=== PATIENT | female | born 1945 | race Caucasian/White ===

== ENCOUNTER 2017-01-24 08:07 | Emergency (ER) | payer OTHER, MEDICARE ==
[2017-01-24 08:11] VITALS: RESP 16; TEMP 98.4
--- NOTE | 2017-01-24 08:15 | EDPHY ---
H & P Stated Complaint: CP - Personal History Current Tetanus/Diphtheria Vaccine: Yes - Medical/Surgical History Hx Asthma: No Hx Chronic Respiratory Disease: No Hx Diabetes: No Hx Cardiac Disease: No Hx Renal Disease: No Hx Cirrhosis: No Hx Alcoholism: No Hx HIV/AIDS: No Hx Splenectomy or Spleen Trauma: No - Social History Smoking Status: Never smoked Time Seen by Provider: 01/24/17 08:14 HPI/ROS: CHIEF COMPLAINT: chest pain abdominal discomfort HISTORY OF PRESENT ILLNESS: 71-year-old female presents to the emergency department via private vehicle complaining of 2 weeks of abdominal "gurgling" sensation which occurs postprandial and also describes chest pain which only occurs when she is lying supine. Multiple rounds of recent antibiotics secondary to BV and UTI. She returned from a trip to [place] yesterday, while there she perform numerous activities including walking for extended periods and no point did she experience chest pain With exertionor dyspnea out of proportion to her activity. There is no radiation of her pain. No nausea or vomiting. Bowel movements have been normal with no melena or hematochezia. Well formed stool. No history of thromboembolic disorder. No peripheral edema. No pleuritic chest pain PRIMARY CARE PROVIDER: Dr. Tess Putnam REVIEW OF SYSTEMS: A ten point review of systems was performed and is negative with the exception of the items mentioned in the HPI PAST MEDICAL & SURGICAL HISTORY: Abdominal surgical history significant for C- section, otherwise no surgeries. No history of cardiac disease. SOCIAL HISTORY: nonsmoker. Social alcohol use only. PHYSICAL EXAM (Prior to examination, patient consented to physical exam, hands were washed and my usual and customary physical exam procedures followed) 1) GENERAL: Well-developed, well-nourished, alert and oriented. Appears to be in no acute distress. 2) HEAD: Normocephalic, atraumatic 3) HEENT: Pupils equal, round, reactive to light bilaterally. Sclera anicteric. 4) NECK: Full range of motion, no meningeal signs. Negative bruit 5) LUNGS: Clear auscultation bilaterally, no wheezes, no rhonchi, no retractions. 6) HEART: Regular rate and rhythm, no murmur, no heave, no gallop. No chest wall pain 7) ABDOMEN: No guarding, no rebound, no focal tenderness, negative McBurney's, negative Salas's, negative Rovsing's, negative peritoneal sign,I am unable to elicit any abdominal pain on exam 8) MUSCULOSKELETAL: Moving all extremities, no focal areas of tenderness, no obvious trauma. No peripheral edema or discoloration. Negative Homans no palpable cord 9) BACK: No CVA tenderness, no midline vertebral tenderness, no fluctuance, no step-off, no obvious trauma, no visual or palpable abnormality. 10) SKIN: No rash, no petechiae. 11) Psychiatric: Patient is oriented X 3, there is no agitation. DIFFERENTIAL DIAGNOSIS: in no particular order including but not limited to TN, pulmonary embolus, esophageal reflux cholecystitis (Mena Pascal) Constitutional: Initial Vital Signs Temperature (C) 36.9 C 01/24/17 08:08 Heart Rate 87 01/24/17 08:08 Respiratory Rate 16 01/24/17 08:08 Blood Pressure 152/100 H 01/24/17 08:08 O2 Sat (%) 98 01/24/17 08:08 O2 Delivery Mode Room Air Allergies/Adverse Reactions: No Known Allergies Allergy (Unverified 01/24/17 08:11) Home Medications: Medication Instructions Recorded Ranitidine HCl [Zantac] 150 mg PO BID #30 tablet 01/24/17 Medical Decision Making - Diagnostics EKG Interpretation: EKG: Complete interpretation has been separately recorded in the [facility] archive. Summary impression: Sinus rhythm, rate 80 (David Perkins) Imaging Results: Imaging Impressions Chest X-Ray 01/24/17 08:23 Impression: Chest negative for acute cardiopulmonary abnormality. Abdomen Ultrasound 01/24/17 08:25 Impression: Negative right upper quadrant ultrasound. Results called and discussed with Mena Pascal PAC on 01/24/2017 at 9:31 ED Course/Re-evaluation: 8:30 a.m.:. After evaluating the patient, consultation with primary supervising physician Dr Perkins who also evaluated the patient. (Mena Pascal) Other Provider: INDEPENDENT PHYSICIAN DOCUMENTATION I evaluated and participated in the management of the patient. I also evaluated the patient independently. My co-signature indicates that I have reviewed this chart and I agree with the findings and plan of care as documented. My personal H&P findings include: The patient presents to the ED with several weeks of epigastric pain. The pain is intermittent in nature. It is something that occurs after eating. The patient denies history of exertional chest pain or shortness of breath. The patient has no history of coronary artery disease. The patient denies history of melena. She denies history of significant abdominal surgery. The patient describes her symptoms as "gurgling in her stomach." The patient had been treated with several rounds of antibiotics prior to the initiation of her symptoms. Physical examination: General Appearance: Alert, no distress Eyes: Pupils equal and round no pallor or injection ENT, Mouth: Mucous membranes moist Respiratory: There are no retractions, lungs are clear to auscultation Cardiovascular: Regular rate and rhythm Gastrointestinal: Abdomen is soft and nontender, no masses, bowel sounds normal Neurological: A&O, normal motor function, normal sensory exam, normal cranial nerves Skin: Warm and dry, no rashes Musculoskeletal: Neck is supple nontender Extremities: symmetrical, full range of motion The patient's EKG demonstrates no evidence of ischemia. I reviewed the patient's laboratory studies. A right upper quadrant ultrasound was ordered to exclude the possibility of cholelithiasis. I do feel the patient can be discharged home with a diagnosis of likely gastroesophageal reflux disease. The patient will be started on ranitidine. She is also encouraged to use Maalox. She is referred to Gastroenterology for further evaluation. (David Perkins) - Data Points Laboratory Results: Laboratory Results 01/24/17 08:25 01/24/17 08:25 01/24/17 01/24/17 01/24/17 08:25 08:25 08:25 WBC 8.77 10^3/uL 10^3/uL (3.80-9.50) RBC 4.30 10^6/uL 10^6/uL (4.18-5.33) Hgb 12.4 g/dL L g/dL (12.6-16.3) Hct 37.9 % L % (38.0-47.0) MCV 88.1 fL fL (81.5-99.8) MCH 28.8 pg pg (27.9-34.1) MCHC 32.7 g/dL g/dL (32.4-36.7) RDW 12.2 % % (11.5-15.2) Plt Count 358 10^3/uL 10^3/uL (150-400) MPV 8.4 fL L fL (8.7-11.7) Neut % (Auto) 61.9 % % (39.3-74.2) Lymph % (Auto) 30.0 % % (15.0-45.0) Dickson % (Auto) 7.3 % % (4.5-13.0) Eos % (Auto) 0.1 % L % (0.6-7.6) Baso % (Auto) 0.2 % L % (0.3-1.7) Nucleat RBC Rel Count 0.0 % % (0.0-0.2) Absolute Neuts (auto) 5.43 10^3/uL 10^3/uL (1.70-6.50) Absolute Lymphs (auto) 2.63 10^3/uL 10^3/uL (1.00-3.00) Absolute Monos (auto) 0.64 10^3/uL 10^3/uL (0.30-0.80) Absolute Eos (auto) 0.01 10^3/uL L 10^3/uL (0.03-0.40) Absolute Basos (auto) 0.02 10^3/uL 10^3/uL (0.02-0.10) Absolute Nucleated RBC 0.00 10^3/uL 10^3/uL (0-0.01) Immature Gran % 0.5 % % (0.0-1.1) Immature Gran # 0.04 10^3/uL 10^3/uL (0.00-0.10) D-Dimer TNP Sodium 139 mEq/L mEq/L (134-144) Potassium 3.7 mEq/L mEq/L (3.5-5.2) Chloride 105 mEq/L mEq/L (97-110) Carbon Dioxide 24 mEq/l mEq/l (22-31) Anion Gap 10 mEq/L mEq/L (8-16) BUN 12 mg/dL mg/dL (7-23) Creatinine 0.6 mg/dL mg/dL (0.6-1.0) Estimated GFR > 60 Glucose 107 mg/dL H mg/dL (70-100) Calcium 9.5 mg/dL mg/dL (8.5-10.4) Troponin I < 0.012 ng/mL ng/mL (0-0.034) Departure - Departure Disposition: Home, Routine, Self-Care Clinical Impression: Reflux esophagitis Condition: Good Instructions: Gastritis (ED), Gastroesophageal Reflux Disease (ED) Additional Instructions: Seek medical attention if you develop new or worsening chest or abdominal pain, if you develop new or worsening shortness of breath, or any other symptoms that concern you. Referrals: Dallas Gonzalez MD [place] [place] - 2-3 days, call for appt. (Dr. Gonzalez is a horse riding coach or instructor) Prescriptions: Ranitidine HCl [Zantac] 150 mg PO BID #30 tablet
--- NOTE | 2017-01-24 08:20 | CPEKG ---
Heart Rate: 80 RR Interval: 750 P-R Interval: 140 QRSD Interval: 86 QT Interval: 392 QTC Interval: 453 P [place]: 56 QRS [place]: 0 T Wave [place]: -3 EKG Severity - ABNORMAL ECG - EKG Impression: SINUS RHYTHM Electronically Signed By: David Perkins 24-Jan-2017 09:21:36
[2017-01-24 08:42] LABS: % IMMATURE GRANULYOCYTES 0.5 % (0.0-1.1); ABSOLUTE IMMATURE GRANULOCYTES 0.04 10^3/uL (0.00-0.10); ADD DIFF? NO; ADD MORPH? NO; ADD SCAN? NO; ATYPICAL LYMPHOCYTE FLAG 10 (0-99); FRAGMENT RBC FLAG 0 (0-99); HEMATOCRIT 37.9 % (38.0-47.0); HEMOGLOBIN 12.4 g/dL (12.6-16.3); LEFT SHIFT FLG 0 (0-99); LIPEMIA HEMOLYSIS FLAG 80 (0-99); MEAN CELL HEMOGLOBIN 28.8 pg (27.9-34.1); MEAN CELL HEMOGLOBIN CONCENTR. 32.7 g/dL (32.4-36.7); MEAN CELL VOLUME 88.1 fL (81.5-99.8); MEAN PLATELET VOLUME 8.4 fL (8.7-11.7); PLATELET CLUMPS FLAG 10 (0-99); PLATELET COUNT 358 10^3/uL (150-400); RED CELL DISTRIBUTION WIDTH 12.2 % (11.5-15.2)
[2017-01-24 08:50] LABS: ANION GAP 10 mEq/L (8-16); CALCIUM 9.5 mg/dL (8.5-10.4); CARBON DIOXIDE 24 mEq/l (22-31); CHLORIDE 105 mEq/L (97-110); CREATININE 0.6 mg/dL (0.6-1.0); GLOMERULAR FILTRATION RATE > 60; GLUCOSE 107 mg/dL (70-100); POTASSIUM 3.7 mEq/L (3.5-5.2); SODIUM 139 mEq/L (134-144)
[2017-01-24 09:02] LABS: TROPONIN I < 0.012 ng/mL (0-0.034)
[2017-01-24 09:56] VITALS: BP 166/82; PULSE 79; O2SAT 94
== END 2017-01-24 09:54 | disposition home or self-care (01) ==
DX: K21.0 Gastro-esophageal reflux disease with esophagitis (principal)

== ENCOUNTER → 2017-07-22 | Outpatient (CLI) | payer OTHER, MEDICARE | LOC: FIMAGING 12:27 | PROVIDERS: ATTEND Internal Medicine | DX: Z12.31 Encounter for screening mammogram for malignant neoplasm of breast (principal) | CPT/HCPCS: G0202 ==

== ENCOUNTER → 2017-10-27 | Outpatient (CLI) | payer OTHER, MEDICARE | LOC: BMCIMAGING 11:17 | PROVIDERS: ATTEND Internal Medicine | DX: Z13.820 Encounter for screening for osteoporosis (principal); M85.89 Other specified disorders of bone density and structure, multiple sites ==

== ENCOUNTER → 2018-08-26 | Outpatient (CLI) | payer OTHER, MEDICARE | LOC: FIMAGING 10:25 | PROVIDERS: ATTEND Internal Medicine | DX: Z12.31 Encounter for screening mammogram for malignant neoplasm of breast (principal) ==